=== PATIENT | female | born 1985 | race Caucasian/White ===

== ENCOUNTER 2018-04-21 06:24 | Emergency (ER) | payer OTHER, MEDICAID ==
[2018-04-21] MEDS: KETOROLAC 60 MG INJ IM (07:04)
== END 2018-04-21 07:44 | disposition home or self-care (01) ==
LOC: FTE 06:24
DX: S16.1XXD Strain of muscle, fascia and tendon at neck level, subsequent encounter (principal); X58.XXXA Exposure to other specified factors, initial encounter; Y92.9 Unspecified place or not applicable
CPT/HCPCS: 81025; 96372; 99284-25